=== PATIENT | female | born 1955 | race Caucasian/White ===

== ENCOUNTER 2024-07-11 13:03 | Outpatient (AMB) | payer MEDICARE, SELFPAY ==
--- NOTE | 2024-07-11 13:09 | A.OFFVIS_ITS ---
Intake Visit Reasons: history of kidney stones and IC Intake Note: Patient is present for history of kidney stones and IC Urology Medication:NONE Antibiotic Allergy:NONE Blood Thinner:NONE Property Claims Adjuster Required: No Allergies amoxicillin Allergy (Mild, Verified 07/11/24 14:04) Unknown ampicillin Allergy (Mild, Verified 07/11/24 14:04) Unknown Penicillins Allergy (Mild, Verified 07/11/24 14:04) Unknown HPI Comments Details: 07/11/2024--Josefina is a 68-year-old female who has a history of kidney stones and interstitial cystitis seen by [facility] Dr. Andi Zavala in the past here for evaluation. She states she is currently asymptomatic. She has not had IC symptoms other than getting up frequently at nighttime. She of the IC diet. Josefina states she had her 1st episode of kidney stone attack about 35 years ago. She has past a couple stones in the past and had a procedure with Dr. Zavala at [facility] in 2018 for an obstructive stone. Since then she has been doing well. She is followed by nephrology group [facility] in [facility]. She states she had a 24 hour urine done about 3 or 4 months ago. She previously been treated with hydrochlorothiazide currently not using the medication. She states she had a CT scan done about 4 months ago at [facility]. I will request the report to be sent to my attention. Plan-will continue to monitor kidneys, discussed diet recommendations to decrease risk of kidney stone formation. FU in 6 months. PFSH Family History (Updated 07/11/24 @ 14:15 by YADIRA Red) Father Bladder cancer Mother Heart attack Social History (Updated 07/11/24 @ 14:35 by YADIRA Red) Alcohol intake: former Patient Tobacco Use Status: Former Tobacco user Use of substances other than those prescribed or required for medical reasons: No Review of Systems Const All systems reviewed & are unremarkable except as noted in HPI and below Reports no additional complaints Eyes Reports no additional complaints ENT Reports no additional complaints Card Reports no additional complaints Resp Reports no additional complaints GI Reports no additional complaints Reports as per HPI Musc Reports no additional complaints Skin/Breast Reports system reviewed and no additional complaints, except as documented Neuro Reports no additional complaints Psych Reports no additional complaints Endo Reports no additional complaints Hai/Lymph Reports no additional complaints Aller/Immun Reports no additional complaints Physical Exam Const General: cooperative, healthy appearing and no acute distress Orientation/consciousness: patient oriented x3 HEENT Head: Yes normal to inspection, Yes normocephalic and Yes atraumatic Eyes Conjunctivae: conjunctivae normal Neck Neck: Yes normal visual inspection and Yes trachea midline Chest Chest palpation & inspection: normal inspection of the chest Resp Effort & Inspection: normal respiratory effort Cardio Rate: regular rate GI Inspection: Yes normal to inspection Neuro General: patient oriented x3 Psych Appearance: grossly normal Results AMB Urinalysis, Automated UA Leukoctes 0 Antoni/uL Last Edit by Meghana Lin CCM on 07/11/24 13:22 UA Nitrite Negative Last Edit by Meghana Lin [facility] on 07/11/24 13:22 UA Urobilinogen 0.2 mg/dL Last Edit by Meghana Lin [facility] on 07/11/24 13:2 2 UA Protein 0 mg/dL Last Edit by Meghana Lin [facility] on 07/11/24 13:22 UA pH 6.5 Last Edit by Meghana Lin [facility] on 07/11/24 13:22 UA Blood 0 Allen/uL Last Edit by Meghana Lin CCM on 07/11/24 13:22 UA Specific [place] 1.005 Last Edit by Meghana Lin CCM on 07/11/24 13: 22 UA Ketone Negative Last Edit by Meghana Lin CCM on 07/11/24 13:22 UA Bilirubin 0 mg/dL Last Edit by Meghana Lin [facility] on 07/11/24 13:22 UA Glucose 0 mg/dL Last Edit by Meghana Lin [facility] on 07/11/24 13:22 Results Reviewed Results Reviewed: Laboratory Last Values Urine pH (Auto) 6.5 07/11/24 13:22 Specific [place] (Auto) 1.005 07/11/24 13:22 Urine Protein (Auto) 0 mg/dL 07/11/24 13:22 Glucose (UA)(Auto) 0 mg/dL 07/11/24 13:22 Urine Ketones (Auto) Negative 07/11/24 13:22 Urine Blood (Auto) 0 Allen/uL 07/11/24 13:22 Urine Nitrite (Auto) Negative 07/11/24 13:22 Urine Bilirubin (Auto) 0 mg/dL 07/11/24 13:22 Urine Urobilinogen (Auto) 0.2 mg/dL 07/11/24 13:22 Leukocyte Esterase (Auto) 0 Antoni/uL 07/11/24 13:22 Assessment & Plan Assessment & Plan (1) Kidney stones, calcium oxalate: Code(s): N20.0 - Calculus of kidney Category: Medical (2) History of recurrent UTIs: Code(s): Z87.440 - Personal history of urinary (tract) infections Category: Medical (3) Chronic cystitis: Code(s): N30.20 - Other chronic cystitis without hematuria Category: Medical Plan She states she had a 24 hour urine done about 3 or 4 months ago. She previously been treated with hydrochlorothiazide currently not using the medication. She states she had a CT scan done about 4 months ago at [facility]. I will request the report to be sent to my attention. Plan-will continue to monitor kidneys, discussed diet recommendations to decrease risk of kidney stone formation. FU in 6 months. Orders: Orders AMB Urinalysis Automated 07/11/24 Z13.9 - Encounter for screening, unspecified US renal BI 6 Months N20.0 - Calculus of kidney Patient Instructions: The patient had an opportunity to ask questions regarding treatment plan. The patient expressed understanding and agreement with the above treatment plan. The patient is aware they should contact our office by phone for worsening of their current condition or the appearance of new symptoms. Compliance is encouraged with any medications and followup testing that is ordered. It is a privilege to be allowed the opportunity to participate in the urologic care of your patient. If you have any questions or concerns regarding treatment for the above conditions please do not hesitate to contact me. The office telephone contact is [phone]. This note is constructed in part using voice recognition software. While every effort has been made to ensure accuracy structural engineering project manager errors may have been included. Yours sincerely, Deanna Rosenberg MD Coding Level of Care Code New Pt Level 4 (76778) Diagnoses Kidney stones, calcium oxalate N20.0 History of recurrent UTIs Z87.440 Chronic cystitis N30.20
== END 2024-07-11 13:55 | disposition home or self-care (01) ==
PROVIDERS: PCP Internal Medicine; Visit Provider Urology
DX: N20.0 Calculus of kidney (principal); Z87.440 Personal history of urinary (tract) infections; N30.20 Other chronic cystitis without hematuria
CPT/HCPCS: 99204

== ENCOUNTER → 2024-07-11 13:03 | Outpatient (BNVA) | payer MEDICARE, SELFPAY | PROVIDERS: PCP Internal Medicine; Visit Provider Urology | DX: N20.0 Calculus of kidney (principal); N30.20 Other chronic cystitis without hematuria; Z87.440 Personal history of urinary (tract) infections | CPT/HCPCS: 81003; 99202 ==

== ENCOUNTER 2025-01-13 15:24 | Outpatient (REF) | payer MEDICARE, SELFPAY ==
--- NOTE | ~2025-01-13 | US_ITS ---
CLINICAL HISTORY: N20.0 - Calculus of kidney US renal with Color Doppler Comparison: None Findings: Right kidney normal size and echotexture, 10.3 cm length. No hydronephrosis calculus or mass. Normal color flow. Left kidney normal size and echotexture, 9.8 cm length. No hydronephrosis. Normal color flow. Nonobstructing caliceal stone upper pole measuring 4 x 3 x 2 mm. Echogenic renal cortical lesion midpole probable angiomyolipoma measuring 7 x 7 x 7 mm. Impression: 1. Kidneys normal size and position with normal cortical width. Nephrolithiasis on the left without evidence of obstructive uropathy. 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
--- OUTSIDE RECORDS SUMMARY | 2025-01-13 17:40 | XMS_ITS | Clinical Summary ---
Author Organization [facility], Address [address] [place] [address] [place] [address] Phone Care Team Providers Care Customer Success Specialist Name Role Phone Alyssa James MD Primary Care Provider [phone] Allergies Active Allergy Reactions Criticality Noted Date Comments Amoxicillin 02/27/2024 Ampicillin Other (see comments),Rash Low 02/27/2024 Other 02/27/2024 OPIOIDS - MORPHINE ANALOGUES Penicillins Other (see comments),Rash Low 11/02/2017 All cillins Per pt Medications hydroCHLOROthia zide 25 MG tablet TAKE 1 TABLET BY MOUTH IN THE MORNING 90 tablet 09/18/2023 Active Active Problems Problem Noted Date Diagnosed Date Hypercalciuria 02/27/2024 Hypertension 02/27/2024 Renal stone 05/08/2020 Resolved Problems Problem Noted Date Diagnosed Date Resolved Date Insomnia 11/06/2020 05/18/2021 Human papillomavirus deoxyri bonucleic acid detected, high risk on cervical specimen 04/04/2019 05/08/2020 Overview (05/08/2020): 2019, was neg at previous pap 2012; pap with HPV advised in 2019 Last Assessment & Plan: Reviewed the protocol for colpo if HPV pos x 2, and for annual paps Cyst of right ovary 03/04/2019 05/08/20 20 Overview (05/08/2020): If still 2.5 cm and simple as in 2013 ,. Will not need any further imaging Dupuytren's contracture 02/22/201804/20 Osteopenia 02/22/2018 05/08/2020 Immunizations Name Administration Dates Next Due Influenza Split High Dose Pr eservative Free IM 09/30/2019 Influenza, MDCK, PF, Quadrivalent 08/21/2018 Influenza, Quadrivalent, Preservative Free 10/25,12/06/2016 Influenza, Quadrivalent, With Preservative 09/18,09/23/2014 Pfizer SARS-COV-2 09/01/2021,01/25/2021,01/04/20 21 Pneumococcal Conjugate 13-Valent 08/19/2020 Td 02/18/2022 Family History Medical History Relation Comments Cancer Father of the bladder Heart attack Mother Relation Status Comments Father Unknown Mother Unknown Social History Tobacco Use Types Packs/Day Years Used Date Smoking Tobacco: Former Cigarettes Smokeless Tobacco: Never Alcohol Use Standard Drinks/Week Comments No 0 (1 standard drink = 0.6 oz pur e alcohol) Comments Unknown Sex and Gender Information Value Date Recorded Sex Assigned at Not on file Legal Sex Female 4:30 PM EST Gender Identity Not on file Sexual Orientation Not on file Last Filed Vital Signs Vital Sign Reading Time Taken Comments Blood Pressure 100/60 03/18/2019 12:00 PM EDT Pulse - - Temperature - - Respiratory Rate - - Oxygen Saturation - - Inhaled Oxygen Concentration - - Weight 62.6 kg (138 lb) 03/18/2019 12:00 PM EDT Height 154.9 cm (5' 1 ) 03/18/2019 12:00 PM EDT Body Mass Index 26.07 03/18/2019 12:00 PM EDT Plan of Treatment Upcoming Encounters Date Type Department Care Team (Late st Contact Info) Description 03/03/2025 2:00 PM EDT Office Visit [facility], [address] [place] [address] Albin Gomez MD [address] [place] [address] Health Maintenance Due Date Last Done Comments Breast Cancer Screening 1954 Colorectal Cancer Screening: Annual FOBT 2003 Colorectal Cancer Screening: Colonoscopy 2003 Colorectal Cancer Screening: Sigmoidoscopy 2003 Pneumococcal Vaccine: 65+ Years (2 of 2 - PPSV23 or PCV20) 10/14/2020 08/19/2020 Influenza Vaccine (#1) 2024 9, 08/21/2018, 10/25/2017, Additional history exists Hepatitis B Vaccine Aged Out No longe r eligible based on patient's age to complete this topic Insurance [facility] MEDIC[facility] Care Teams Customer Success Specialist Relationship Specialty Start Date End Date Alyssa James MD [address] [place] [address], [address] [place] [address] PCP - General 09/24/19
--- OUTSIDE RECORDS SUMMARY | 2025-01-13 17:40 | XMS_ITS | Encounter Summary ---
Author Organization [facility] Address [address] [place] [address] Phone Care Team Providers Care Breaker Hand Name Role Phone Alyssa James MD Primary Care Provider [phone] Encounter Details Date Type Department Care Team (Late Contact Info) Description 02/27/2024 Documentation Only [facility] [address] [place] [address] Raquel Summers [address] [place] [address] Social History Tobacco Use Types Packs/Day Years Used Date Smoking Tobacco: Former Cigarettes Smokeless Tobacco: Never Alcohol Use Standard Drinks/Week Comments No 0 (1 standard drink = 0.6 oz pur e alcohol) Comments Unknown Sex and Gender Information Value Date Recorded Sex Assigned at Not on file Legal Sex Female 4:30 PM EST Gender Identity Not on file Sexual Orientation Not on file documented as of this encounter Plan of Treatment Upcoming Encounters Date Type Department Care Team (Late st Contact Info) Description 03/03/2025 2:00 PM EDT Office Visit [facility] [address] [place] [address] Albin Gomez MD [address] [place] [address] [place] [address] documented as of this encounter Visit Diagnoses Not on filedocumented in this encounter Care Teams Breaker Hand Relationship Specialty Start Date End Date Alyssa James MD [address] [place] [address], [address] [place] [address] PCP - General 09/24/19 documented as of this encounter
--- OUTSIDE RECORDS SUMMARY | 2025-01-13 17:40 | XMS_ITS | Clinical Summary ---
Author Organization [facility] ity Address [address] [place] [address] Care Team Providers Care Director Of Food And Beverage Services Name Role Phone Unavailable Primary Care Provider Unavailabl e Social History Tobacco Use Types Packs/Day Years Used Date Smoking Tobacco: Never Assessed Comments Unknown Sex and Gender Information Value Date Recorded Sex Assigned at Not on file Legal Sex Female 10:39 AM EST Gender Identity Not on file Sexual Orientation Not on file Plan of Treatment Health Maintenance Due Date Last Done Comments Breast Cancer Screening 1955 DTaP,Tdap,and Td Vaccines (1 - Tdap) 1973 Pneumococcal Vaccine: 50+ Ye ars (1 of 1 - PCV) 2004 Zoster Vaccines (1 of 2) 2004 COVID-19 Vaccine ( - 2023-2 5 season) 2024 Influenza Vaccine (#1) 2024 RSV Immunization Patients 60 + Years Old (1 - 1-dose 75+ series) 2029 HIB Vaccines Aged Out No longer eligi ble based on patient's age to complete this topic HPV Vaccines Aged Out No longer eligi ble based on patient's age to complete this topic Hepatitis A Vaccines Aged Out No long er eligible based on patient's age to complete this topic Hepatitis B Vaccines Aged Out No long er eligible based on patient's age to complete this topic IPV Vaccines Aged Out No longer eligi ble based on patient's age to complete this topic MMR Vaccines Aged Out No longer eligi ble based on patient's age to complete this topic Meningococcal ACWY Vaccine Aged Out N o longer eligible based on patient's age to complete this topic Meningococcal B Vacine Aged Out No lo nger eligible based on patient's age to complete this topic RSV Immunization Patients Un scot 20 months Aged Out No longer eligible b ased on patient's age to complete this topic Varicella Vaccines Aged Out No longer eligible based on patient's age to complete this topic
--- OUTSIDE RECORDS SUMMARY | 2025-01-13 17:40 | XMS_ITS | Encounter Summary ---
Author Organization [facility] Address [address] [place] [address] Phone Care Team Providers Care Cook Helper Meat Name Role Phone Alyssa James MD Primary Care Provider [phone] Encounter Details Date Type Department Care Team (Late Contact Info) Description 02/27/2024 Documentation Only [facility] [address] [place] [address] Raquel Summers [address] [place] [address] Social History Tobacco Use Types [...] Visit [facility] [address] [place] [address] Albin Gomez MD [address] [place] [address] [place] [address] documented as of this encounter Visit Diagnoses Not on filedocumented in this encounter Care Teams Cook Helper Meat Relationship Specialty Start Date End Date Alyssa James MD [address] [place] [address], [address] [place] [address] PCP - General 09/24/19 documented as of this encounter
--- OUTSIDE RECORDS SUMMARY | 2025-01-13 17:40 | XMS_ITS | Encounter Summary ---
Author Organization [facility] Address [address] [place] [address] Phone Care Team Providers Care Accountant Bookkeeper Name Role Phone Alyssa James MD Primary Care Provider [phone] Encounter Details Date Type Department Care Team (Late Contact Info) Description 02/27/2024 Documentation Only [facility] [address] [place] [address] Raquel Summers [address] [place] [address] Social History Tobacco Use Types [...] Visit [facility] [address] [place] [address] Albin Gomez MD [address] [place] [address] [place] [address] documented as of this encounter Visit Diagnoses Not on filedocumented in this encounter Care Teams Accountant Bookkeeper Relationship Specialty Start Date End Date Alyssa James MD [address] [place] [address], [address] [place] [address] PCP - General 09/24/19 documented as of this encounter
--- OUTSIDE RECORDS SUMMARY | 2025-01-13 17:40 | XMS_ITS | Encounter Summary ---
Author Organization [facility] Address [address] [place] [address] Phone Care Team Providers Care Business Development Consultant Name Role Phone Alyssa James MD Primary Care Provider [phone] Encounter Details Date Type Department Care Team (Late Contact Info) Description 02/27/2024 Documentation Only [facility] [address] [place] [address] Raquel Summers [address] [place] [address] Social History Tobacco Use Types [...] Visit [facility] [address] [place] [address] Albin Gomez MD [address] [place] [address] [place] [address] documented as of this encounter Visit Diagnoses Not on filedocumented in this encounter Care Teams Business Development Consultant Relationship Specialty Start Date End Date Alyssa James MD [address] [place] [address], [address] [place] [address] PCP - General 09/24/19 documented as of this encounter
--- OUTSIDE RECORDS SUMMARY | 2025-01-13 17:40 | XMS_ITS | Encounter Summary ---
Author Organization [facility] Address [address] [place] [address] Phone Care Team Providers Care Operations Professional Name Role Phone Alyssa James MD Primary Care Provider [phone] Encounter Details Date Type Department Care Team (Late Contact Info) Description 02/27/2024 Documentation Only [facility] [address] [place] [address] Raquel Summers [address] [place] [address] Social History Tobacco Use Types [...] Visit [facility] [address] [place] [address] Albin Gomez MD [address] [place] [address] [place] [address] documented as of this encounter Visit Diagnoses Not on filedocumented in this encounter Care Teams Operations Professional Relationship Specialty Start Date End Date Alyssa James MD [address] [place] [address], [address] [place] [address] PCP - General 09/24/19 documented as of this encounter
--- OUTSIDE RECORDS SUMMARY | 2025-01-13 17:40 | XMS_ITS | Encounter Summary ---
Author Organization [facility] Address [address] [place] [address] Phone Care Team Providers Care Clerical Investigator Name Role Phone Alyssa James MD Primary Care Provider [phone] Encounter Details Date Type Department Care Team (Late st Contact Info) Description 07/25/2024 Documentation Only [facility] [address] [place] [address] Raquel Summers [address] [place] [address] Social History Tobacco Use Types [...] Visit [facility] [address] [place] [address] Albin Gomez MD [address] [place] [address] [place] [address] documented as of this encounter Visit Diagnoses Not on filedocumented in this encounter Care Teams Clerical Investigator Relationship Specialty Start Date End Date Alyssa James MD [address] [place] [address], [address] [place] [address] PCP - General 09/24/19 documented as of this encounter
--- OUTSIDE RECORDS SUMMARY | 2025-01-13 17:40 | XMS_ITS | Encounter Summary ---
Author Organization [facility] Address [address] [place] [address] Phone Care Team Providers Care Mercury Purifier Name Role Phone Alyssa James MD Primary Care Provider [phone] Encounter Details Date Type Department Care Team (Late st Contact Info) Description 10/02/2023 Documentation Only [facility] [address] [place] [address] Raquel Summers [address] [place] [address] Social History Tobacco Use Types Packs/Day Years Used Date Smoking Tobacco: Never Alcohol Use Standard Drinks/Week Comments [...] Visit [facility] [address] [place] [address] Albin Gomez MD [address] [place] [address] [place] [address] documented as of this encounter Visit Diagnoses Not on filedocumented in this encounter Care Teams Mercury Purifier Relationship Specialty Start Date End Date Alyssa James MD [address] [place] [address], [address] [place] [address] PCP - General 09/24/19 documented as of this encounter
--- OUTSIDE RECORDS SUMMARY | 2025-01-13 17:40 | XMS_ITS | Encounter Summary ---
Author Organization [facility] Address [address] [place] [address] Phone Care Team Providers Care Stave Planer Tender Name Role Phone Alyssa James MD Primary Care Provider [phone] Encounter Details Date Type Department Care Team (Late st Contact Info) Description 10/02/2023 Documentation Only [facility] [address] [place] [address] Raquel Summers [address] [place] [address] Social History Tobacco Use Types [...] Visit [facility] [address] [place] [address] Albin Gomez MD [address] [place] [address] [place] [address] documented as of this encounter Visit Diagnoses Not on filedocumented in this encounter Care Teams Stave Planer Tender Relationship Specialty Start Date End Date Alyssa Jaems MD [address] [place] [address], [address] [place] [address] PCP - General 09/24/19 documented as of this encounter
== END 2025-01-13 15:25 | disposition home or self-care (01) ==
LOC: HO.HMGCX 15:24
PROVIDERS: PCP Internal Medicine; Visit Provider Urology
DX: N20.0 Calculus of kidney (principal)
CPT/HCPCS: 76775

== ENCOUNTER → 2025-01-13 15:26 | Outpatient (BNV) | payer MEDICARE, SELFPAY | PROVIDERS: PCP Internal Medicine; Visit Provider Radiology Diagnostic Radiology | DX: N20.0 Calculus of kidney (principal) | CPT/HCPCS: 76775 ==

== ENCOUNTER 2025-02-20 13:33 | Outpatient (AMB) | payer MEDICARE, SELFPAY ==
--- NOTE | 2025-02-19 13:18 | A.OFFVIS_ITS ---
Intake Visit Reasons: 7m/US Intake Note: Patient presents as a telehealth visit for a 7 month follow up/US. Urology Medication:NONE Antibiotic Allergy:NONE Blood Thinner:NONE Lead Pharmacy Technician Required: No Allergies amoxicillin Allergy (Mild, Verified 02/19/25 13:18) Unknown ampicillin Allergy (Mild, Verified 02/19/25 13:18) Unknown Penicillins Allergy (Mild, Verified 02/19/25 13:18) Unknown HPI Comments Details: 02/19/25--Telehealth History of Present Illness The patient is a 69-year-old female presenting with follow-up concerns regarding previously identified renal issues. An ultrasound conducted on January 13, 2025, revealed a 4 mm renal stone in the left kidney and a 7 mm echogenic cortical lesion suggestive of angiomyolipoma. These findings currently appear asymptomatic, with no reported changes in the patient's urinary habits or the presence of associated pain. The history reveals no acute complications since the initial discovery, indicating stability of the conditions at this time. Discussion Notes I discussed with the patient the ultrasound findings indicating the presence of a left renal stone measuring 4 mm and a cortical lesion suspected to be an angiomyolipoma measuring 7 mm. I explained that while the stone is small and currently does not necessitate urgent intervention, periodic monitoring is advised. Regarding the lesion, I discussed the potential need for further imaging?specifically a CT scan with renal mass protocol, including IV contrast, to better characterize it. The follow-up imaging can occur in six months unless symptoms arise. I clarified that, currently, there are no concerning findings, but the additional imaging helps ensure comprehensive evaluation. I advised that the CT scan requires bloodwork to assess renal function due to the use of contrast. Urinary Symptoms Review - No acute urinary symptoms reported - No changes in frequency or urgency of urination mentioned - No instances of pain or discomfort documented - No reports of urinary incontinence Results - Ultrasound (01/13/25): 4 mm left renal calculus, 7 mm echogenic cortical lesion suggestive of angiomyolipoma (01/13/25--Nonobstructing caliceal stone upper pole measuring 4 x 3 x 2 mm. Echogenic renal cortical lesion midpole probable angiomyolipoma measuring 7 x 7 x 7 mm.) 07/11/2024--Josefina is a 68-year-old female who has a history of kidney stones and interstitial cystitis seen by [facility] Dr. Charbel Zavala in the past here for evaluation. She states she is currently asymptomatic. She has not had IC symptoms other than getting up frequently at nighttime. She of the IC diet. Josefina states she had her 1st episode of kidney stone attack about 35 years ago. She has past a couple stones in the past and had a procedure with Dr. Zavala at [facility] in 2018 for an obstructive stone. Since then she has been doing well. She is followed by nephrology group [facility] in [facility]. She states she had a 24 hour urine done about 3 or 4 months ago. She previously been treated with hydrochlorothiazide currently not using the medication. She states she had a CT scan done about 4 months ago at [facility]. I will request the report to be sent to my attention. Plan-will continue to monitor kidneys, discussed diet recommendations to decrease risk of kidney stone formation. FU in 6 months. PFSH Family History Father Bladder cancer Mother Heart attack Social History Alcohol intake: former Patient Tobacco Use Status: Former Tobacco user Review of Systems Const All systems reviewed & are unremarkable except as noted in HPI and below Reports no additional complaints Eyes Reports no additional complaints ENT Reports no additional complaints Card Reports no additional complaints Resp Reports no additional complaints GI Reports no additional complaints Reports as per HPI Musc Reports no additional complaints Skin/Breast Reports system reviewed and no additional complaints, except as documented Neuro Reports no additional complaints Psych Reports no additional complaints Endo Reports no additional complaints Hai/Lymph Reports no additional complaints Aller/Immun Reports no additional complaints Telehealth Telehealth Telehealth Platform: [facility] Location of provider rendering services: practice address Location of patient: address on file Patient Identification confirmed using: Name, : Yes Telehealth method: video Patient verbally consented to treatment: Yes Patient verbally consented to billing insurance company: Yes Patient informed of any privacy concerns related to visit: Yes Results Reviewed Results Reviewed: Date of Service: 01/13/25 CLINICAL HISTORY: N20.0 - Calculus of kidney US renal with Color Doppler Comparison: None Findings: Right kidney normal size and echotexture, 10.3 cm length. No hydronephrosis calculus or mass. Normal color flow. Left kidney normal size and echotexture, 9.8 cm length. No hydronephrosis. Normal color flow. Nonobstructing caliceal stone upper pole measuring 4 x 3 x 2 mm. Echogenic renal cortical lesion midpole probable angiomyolipoma measuring 7 x 7 x 7 mm. Impression: 1. Kidneys normal size and position with normal cortical width. Nephrolithiasis on the left without evidence of obstructive uropathy. 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 - Complete blood work to assess kidney function before the scheduled CT scan. - Await contact from radiology for scheduling the CT scan in six months. - Follow up with this office after imaging results for discussion and further guidance. Orders: Orders CT abdomen wo/w IV con 6 Months N28.89 - Other specified disorders of kidney and ureter Blood Urea Nitrogen 4 Months N28.89 - Other specified disorders of kidney and ureter Creatinine 4 Months N28.89 - Other specified disorders of kidney and ureter Patient Instructions: The patient had an opportunity to ask questions regarding treatment plan. The patient expressed understanding and agreement with the above treatment plan. The patient is aware they should contact our office by phone for worsening of their current condition or the appearance of new symptoms. Compliance is encouraged with any medications and followup testing that is ordered. It is a privilege to be allowed the opportunity to participate in the urologic care of your patient. If you have any questions or concerns regarding treatment for the above conditions please do not hesitate to contact me. The office telephone contact is [phone]. This note is constructed in part using voice recognition software. While every effort has been made to ensure accuracy semiconductor packages leak tester errors may have been included. Yours sincerely, Deanna Rosenberg MD Scribe Plan - Not visible on output: Patient was informed and verbally consented to the use of an ambient scribe for clinic note documentation during this visit. Coding Level of Care Code Tele Est Pt Level 4 (77448) Diagnoses Kidney stones, calcium oxalate N20.0 Renal mass of unknown nature N28.89
--- OUTSIDE RECORDS SUMMARY | 2025-02-19 15:51 | XMS_ITS | Encounter Summary ---
Author Organization [facility] Address [address] [place] [address] Phone Care Team Providers Care Asbestos Shingle Roofer Name Role Phone Alyssa James MD Primary Care Provider [phone] Encounter Details Date Type Department Care Team (Late st Contact Info) Description 07/25/2024 Documentation Only [facility] [address] [place] [address] Raquel Summers [address] [place] [address] Social History Tobacco Use Types [...] Visit [facility] [address] [place] [address] Albin Gomez MD [address] [place] [address] [place] [address] documented as of this encounter Visit Diagnoses Not on filedocumented in this encounter Care Teams Asbestos Shingle Roofer Relationship Specialty Start Date End Date Alyssa James MD [address] [place] [address], 2nd [place] [address] PCP - General 09/24/19 documented as of this encounter
--- OUTSIDE RECORDS SUMMARY | 2025-02-19 15:51 | XMS_ITS | Encounter Summary ---
Author Organization [facility] Address [address] [place] [address] Phone Care Team Providers Care Report Clerk Name Role Phone Alyssa James MD Primary Care Provider [phone] Encounter Details Date Type Department Care Team (Late st Contact Info) Description 02/27/2024 Documentation Only [facility] [address] [place] [address] Raquel Summers [address] [place] [address] Social History Tobacco Use Types [...] Visit [facility] [address] [place] [address] Albin Gomez MD [address] [place] [address] [place] [address] documented as of this encounter Visit Diagnoses Not on filedocumented in this encounter Care Teams Report Clerk Relationship Specialty Start Date End Date Alyssa James MD [address] [place] [address], 2nd [place] [address] PCP - General 09/24/19 documented as of this encounter
--- OUTSIDE RECORDS SUMMARY | 2025-02-19 15:51 | XMS_ITS | Encounter Summary ---
Author Organization [facility] Address [address] [place] [address] Phone Care Team Providers Care Spear Fisher Name Role Phone Alyssa James MD Primary Care Provider [phone] Encounter Details Date Type Department Care Team (Late st Contact Info) Description 10/02/2023 Documentation Only [facility] [address] [place] [address] Raquel Summers [address] [place] [address] Social History Tobacco Use Types [...] [facility] [address] [place] [address] Albin Gomez MD [address] [place] [address] [place] [address] documented as of this encounter Visit Diagnoses Not on filedocumented in this encounter Care Teams Spear Fisher Relationship Specialty Start Date End Date Alyssa James MD [address] [place] [address], 2nd [place] [address] PCP - General 09/24/19 documented as of this encounter
--- OUTSIDE RECORDS SUMMARY | 2025-02-19 15:51 | XMS_ITS | Encounter Summary ---
Author Organization [facility] Address [address] [place] [address] Phone Care Team Providers Care Sleep Medicine Physician Name Role Phone Alyssa James MD Primary Care Provider [phone] Encounter Details Date Type Department Care Team (Late st Contact Info) Description 02/27/2024 Documentation Only [facility] [address] [place] [address] Raquel Summers [address] [place] [address] Social History Tobacco Use Types [...] [facility] [address] [place] [address] Albin Gomez MD [address] [place] [address] [place] [address] documented as of this encounter Visit Diagnoses Not on filedocumented in this encounter Care Teams Sleep Medicine Physician Relationship Specialty Start Date End Date Alyssa James MD [address] [place] [address], 2nd [place] [address] PCP - General 09/24/19 documented as of this encounter
--- OUTSIDE RECORDS SUMMARY | 2025-02-19 15:51 | XMS_ITS | Clinical Summary ---
Author Organization [facility] [place], Address [address] [place] [address] [place] [address] Phone Care Team Providers Care Horticulturalist Name Role Phone Alyssa James MD Primary Care Provider [phone] Allergies Active Allergy Reactions Criticality Noted Date [...] Visit [facility] [place], [address] [place] [address] Albin Gomez MD [address] [place] [address] Health Maintenance Due Date Last [...] patient's age to complete this topic Insurance [facility] MEDICARE Care Teams Horticulturalist Relationship Specialty Start Date End Date Alyssa James MD [address] [place] [address], 2nd [place] [address] PCP - General 09/24/19
--- OUTSIDE RECORDS SUMMARY | 2025-02-19 15:51 | XMS_ITS | Clinical Summary ---
Author Organization [facility] it[facility] Address [address] [place] [address] Care Team Providers Care Circular Saw Edge Fuser Name Role Phone Unavailable Primary Care Provider [...] 2024 Influenza Vaccine (#1) 2024 RSV Immunization Adult Patie nts (1 - 1-dose 75+ series) 2029 HIB [...]
--- OUTSIDE RECORDS SUMMARY | 2025-02-19 15:51 | XMS_ITS | Encounter Summary ---
Author Organization [facility] Address [address] [place] [address] Phone Care Team Providers Care Drill Runner Helper Name Role Phone Alyssa James MD Primary Care Provider [phone] Encounter Details Date Type Department Care Team (Late st Contact Info) Description 10/02/2023 Documentation Only [facility] [address] [place] [address] Raquel Summers [address] [place] [address] Social History Tobacco Use Types [...] Visit [facility] [address] [place] [address] Albin Gomez MD [address] [place] [address] [place] [address] documented as of this encounter Visit Diagnoses Not on filedocumented in this encounter Care Teams Drill Runner Helper Relationship Specialty Start Date End Date Alyssa James MD [address] [place] [address], 2nd [place] [address] PCP - General 09/24/19 documented as of this encounter
--- OUTSIDE RECORDS SUMMARY | 2025-02-19 15:51 | XMS_ITS | Encounter Summary ---
Author Organization [facility] Address [address] [place] [address] Phone Care Team Providers Care Construction Supervisor/Carpenter Name Role Phone Alyssa James MD Primary Care Provider [phone] Encounter Details Date Type Department Care Team (Late st Contact Info) Description 02/27/2024 Documentation Only [facility] [address] [place] [address] Raquel Summers [address] [place] [address] Social History Tobacco Use Types [...] Visit [facility] [address] [place] [address] Albin Gomez MD [address] [place] [address] [place] [address] documented as of this encounter Visit Diagnoses Not on filedocumented in this encounter Care Teams Construction Supervisor/Carpenter Relationship Specialty Start Date End Date Alyssa James MD [address] [place] [address], 2nd [place] [address] PCP - General 09/24/19 documented as of this encounter
--- OUTSIDE RECORDS SUMMARY | 2025-02-19 15:51 | XMS_ITS | Encounter Summary ---
Author Organization [facility] Address [address] [place] [address] Phone Care Team Providers Care Banking Management Consulting Manager Name Role Phone Alyssa James MD Primary Care Provider [phone] Encounter Details Date Type Department Care Team (Late st Contact Info) Description 02/27/2024 Documentation Only [facility] [address] [place] [address] Raquel Summers [address] [place] [address] Social History Tobacco Use Types [...] Visit [facility] [address] [place] [address] Albin Gomez MD [address] [place] [address] [place] [address] documented as of this encounter Visit Diagnoses Not on filedocumented in this encounter Care Teams Banking Management Consulting Manager Relationship Specialty Start Date End Date Alyssa James MD [address] [place] [address], 2nd [place] [address] PCP - General 09/24/19 documented as of this encounter
--- OUTSIDE RECORDS SUMMARY | 2025-02-19 15:51 | XMS_ITS | Encounter Summary ---
Author Organization [facility] Address [address] [place] [address] Phone Care Team Providers Care Bike Designer Name Role Phone Alyssa James MD Primary Care Provider [phone] Encounter Details Date Type Department Care Team (Late st Contact Info) Description 02/27/2024 Documentation Only [facility] [address] [place] [address] Raquel Summers [address] [place] [address] Social History Tobacco Use Types [...] Visit [facility] [address] [place] [address] Albin Gomez MD [address] [place] [address] [place] [address] documented as of this encounter Visit Diagnoses Not on filedocumented in this encounter Care Teams Bike Designer Relationship Specialty Start Date End Date Alyssa James MD [address] [place] [address], 2nd [place] [address] PCP - General 09/24/19 documented as of this encounter
--- OUTSIDE RECORDS SUMMARY | 2025-02-20 14:50 | XMS_ITS | Encounter Summary ---
Author Organization [facility] Address [address] [place] [address] Phone Care Team Providers Care Security Manager Name Role Phone Alyssa James MD Primary Care Provider [phone] Encounter Details Date Type Department Care Team (Late st Contact Info) Description 07/25/2024 Documentation Only [facility] [address] [place] [address] Raquel Summers [address] [place] [address] Social History Tobacco Use Types [...] Visit [facility] [address] [place] [address] Albin Gomez MD [address] [place] [address] [place] [address] documented as of this encounter Visit Diagnoses Not on filedocumented in this encounter Care Teams Security Manager Relationship Specialty Start Date End Date Alyssa James MD [address] [place] [address], 2nd [place] [address] PCP - General 09/24/19 documented as of this encounter
--- OUTSIDE RECORDS SUMMARY | 2025-02-20 14:50 | XMS_ITS | Clinical Summary ---
Author Organization [facility] [place], Address [address] [place] [address] [place] [address] Phone Care Team Providers Care Retail Director Name Role Phone Alyssa James MD Primary Care Provider [phone] Allergies Active Allergy Reactions Criticality Noted Date [...] Visit [facility] [place], [address] [facility] [facility] [place] [address] Albin Gomez MD [address] [facility] [place] [address] Health Maintenance Due Date Last [...] patient's age to complete this topic Insurance [facility] MEDICARE Care Teams Retail Director Relationship Specialty Start Date End Date Alyssa James MD [address] [place] [address], 2nd [place] [address] PCP - General 09/24/19
--- OUTSIDE RECORDS SUMMARY | 2025-02-20 14:50 | XMS_ITS | Encounter Summary ---
Author Organization [facility] Address [address] [place] [address] Phone Care Team Providers Care Supervisor [address] Name Role Phone Alyssa James MD Primary Care Provider [phone] Encounter Details Date Type Department Care Team (Late st Contact Info) Description 10/02/2023 Documentation Only [facility] [address] [place] [address] Raquel Summers [address] [place] [address] Social History Tobacco Use Types [...] [facility] [address] [place] [address] Albin Gomez MD [address] [place] [address] [place] [address] documented as of this encounter Visit Diagnoses Not on filedocumented in this encounter Care Teams Supervisor [address] Relationship Specialty Start Date End Date Alyssa James MD [address] [place] [address], 2nd [place] [address] PCP - General 09/24/19 documented as of this encounter
--- OUTSIDE RECORDS SUMMARY | 2025-02-20 14:50 | XMS_ITS | Encounter Summary ---
Author Organization [facility] Address [address] [place] [address] Phone Care Team Providers Care Rehab Assistant Name Role Phone Alyssa James MD Primary Care Provider [phone] Encounter Details Date Type Department Care Team (Late st Contact Info) Description 02/27/2024 Documentation Only [facility] [address] [place] [address] Raquel Summers [address] [place] [address] Social History Tobacco Use Types [...] Visit [facility] [address] [place] [address] Albin Gomez MD [address] [place] [address] [place] [address] documented as of this encounter Visit Diagnoses Not on filedocumented in this encounter Care Teams Rehab Assistant Relationship Specialty Start Date End Date Alyssa James MD [address] [place] [address], 2nd [place] [address] PCP - General 09/24/19 documented as of this encounter
--- OUTSIDE RECORDS SUMMARY | 2025-02-20 14:50 | XMS_ITS | Encounter Summary ---
Author Organization [facility] Address [address] [place] [address] Phone Care Team Providers Care Youth Corrections Officer Name Role Phone Alyssa James MD Primary Care Provider [phone] Encounter Details Date Type Department Care Team (Late st Contact Info) Description 10/02/2023 Documentation Only [facility] [address] [place] [address] Raquel Summers [address] [place] [address] Social History Tobacco Use Types [...] Visit [facility] [address] [place] [address] Albin Gomez MD [address] [place] [address] [place] [address] documented as of this encounter Visit Diagnoses Not on filedocumented in this encounter Care Teams Youth Corrections Officer Relationship Specialty Start Date End Date Alyssa James MD [address] [place] [address], 2nd [place] [address] PCP - General 09/24/19 documented as of this encounter
--- OUTSIDE RECORDS SUMMARY | 2025-02-20 14:50 | XMS_ITS | Encounter Summary ---
Author Organization [facility] Address [address] [place] [address] Phone Care Team Providers Care Director Of Oncology Name Role Phone Alyssa James MD Primary Care Provider [phone] Encounter Details Date Type Department Care Team (Late st Contact Info) Description 02/27/2024 Documentation Only [facility] [address] [place] [address] Raquel Summers [address] [place] [address] Social History Tobacco Use Types [...] Visit [facility] [address] [place] [address] Albin Gomez MD [address] [place] [address] [place] [address] documented as of this encounter Visit Diagnoses Not on filedocumented in this encounter Care Teams Director Of Oncology Relationship Specialty Start Date End Date Alyssa James MD [address] [place] [address], [address] [place] [address] PCP - General 09/24/19 documented as of this encounter
--- OUTSIDE RECORDS SUMMARY | 2025-02-20 14:50 | XMS_ITS | Encounter Summary ---
Author Organization [facility] Address [address] [place] [address] Phone Care Team Providers Care Plumber Cub Name Role Phone Alyssa James MD Primary Care Provider [phone] Encounter Details Date Type Department Care Team (Late st Contact Info) Description 02/27/2024 Documentation Only [facility] [address] [place] [address] Raquel Summers [address] [place] [address] Social History Tobacco Use Types [...] Visit [facility] [address] [place] [address] Albin Gomez MD [address] [place] [address] [place] [address] documented as of this encounter Visit Diagnoses Not on filedocumented in this encounter Care Teams Plumber Cub Relationship Specialty Start Date End Date Alyssa James MD [address] [place] [address], [address] [place] [address] PCP - General 09/24/19 documented as of this encounter
--- OUTSIDE RECORDS SUMMARY | 2025-02-20 14:50 | XMS_ITS | Clinical Summary ---
Author Organization [facility] ity Address [address] [place] [address] Care Team Providers Care Cyber Forensics Analyst Name Role Phone Unavailable Primary Care Provider [...]
--- OUTSIDE RECORDS SUMMARY | 2025-02-20 14:50 | XMS_ITS | Encounter Summary ---
Author Organization [facility] Address [address] [place] [address] Phone Care Team Providers Care Barrel Racer Name Role Phone Alyssa James MD Primary Care Provider [phone] Encounter Details Date Type Department Care Team (Late st Contact Info) Description 02/27/2024 Documentation Only [facility] [address] [place] [address] Raquel Summers [address] [place] [address] Social History Tobacco Use Types [...] Visit [facility] [address] [place] [address] Albin Gomez MD [address] [place] [address] [place] [address] documented as of this encounter Visit Diagnoses Not on filedocumented in this encounter Care Teams Barrel Racer Relationship Specialty Start Date End Date Alyssa James MD [address] [place] [address], 2[address] [place] [address] PCP - General 09/24/19 documented as of this encounter
--- OUTSIDE RECORDS SUMMARY | 2025-02-20 14:50 | XMS_ITS | Encounter Summary ---
Author Organization [facility] Address [address] [place] [address] Phone Care Team Providers Care Studio Musician Name Role Phone Alyssa James MD Primary Care Provider [phone] Encounter Details Date Type Department Care Team (Late st Contact Info) Description 02/27/2024 Documentation Only [facility] [address] [place] [address] Raquel Summers [address] [place] [address] Social History Tobacco Use Types [...] Visit [facility] [address] [place] [address] Albin Gomez MD [address] [place] [address] [place] [address] documented as of this encounter Visit Diagnoses Not on filedocumented in this encounter Care Teams Studio Musician Relationship Specialty Start Date End Date Alyssa James MD [address] [place] [address], 2nd [place] [address] PCP - General 09/24/19 documented as of this encounter
== END 2025-02-20 14:02 | disposition home or self-care (01) ==
PROVIDERS: PCP Internal Medicine; Visit Provider Urology
DX: N20.0 Calculus of kidney (principal); N28.89 Other specified disorders of kidney and ureter
CPT/HCPCS: 99214

== ENCOUNTER → 2025-02-20 13:33 | Outpatient (BNVA) | payer MEDICARE, SELFPAY | PROVIDERS: PCP Internal Medicine; Visit Provider Urology ==

== ENCOUNTER 2025-06-11 13:22 | Outpatient (REF) | payer MEDICARE, SELFPAY ==
--- OUTSIDE RECORDS SUMMARY | 2025-06-11 13:55 | XMS_ITS | Encounter Summary ---
Author Organization [facility] Address [address] [address] Phone Care Team Providers Care Back Hoe Machine Operator Name Role Phone Alyssa James MD Primary Care Provider Shayy Claudio Unavailable [phone] Vargas Morrow MD Unavailable Alyssa James MD Unavailable Syed Mooney MD Unavailable Fiona Jerome MD Unavailable Marta Dueñas NP Unavailable Loida Castorena MD Unavailable [phone] Paola Del Rio MD Unavailable Marco Campuzano MD Unavailable Narda Farrar MD Unavailable Alyssa James MD Unavailable [phone] Ra Burleson MD, PhD Unavailable [email or web address] Alyssa James MD Unavailable Encounter Details Date Type Department Care Team (Latest Contact Info) Description 05/15/2019 Transcribe Orders [facility] Department [address] [place] [address] Aguila Terrelle, VALERIA [address] [place] [address], [address] [place] [address] [email or web address] Personal history of urinary calculi (Primary Dx); Cyst of kidney, acquired Social History Tobacco Use Types Packs/Day Years Used Date Smoking Tobacco: Former Smokeless Tobacco: Never Comments:quit in her late 20 s Alcohol Use Standard Drinks/Week Comments Not Currently 0 (1 standard drink = 0.6 oz pur e alcohol) rare Comments No Sex and Gender Information Value Date Recorded Sex Assigned at Female 11/27/2017 9:38 AM EST Legal Sex Female 9:56 PM EDT Gender Identity Female 11/27/2017 9:38 AM EST Sexual Orientation Choose not to disclose 2021 1:22 PM EDT Occupation Industry Job Start Date Job End Date 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 No visible calculi. Small bilateral renal cysts with benign characteristics. 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 No other significant changes. POS [id number] Narrative 07/23/2019 9:00 AM EDT HISTORY: Dysuria, UTI, renal cysts, urinary tract calculi. COMPARISON: . Kidneys 01/10/2019, CT abdomen 11/06/2018 FINDINGS: Right kidney: Kidney remains normal in size again measuring 11.3 cm in the long axis. An 8 mm anechoic cortical mass consistent with a cyst is again demonstrated within the interpolar region and is stable. No evidence of solid masses. No visible calculi. No pelvocaliectasis or evidence of significant cortical thinning. Left kidney: The kidney remains normal in size measuring 10.5 cm in the long axis similar to the previous exam. An 8 mm cyst containing a thin septation and a trace of peripheral echogenic material, likely calcium, in the lower pole is stable. An 8 mm round hyperechoic mass in the upper pole consistent with an angiomyolipoma demonstrated on previous CT and ultrasound is stable. No evidence of new masses. No visible calculi. No pelvocaliectasis or evidence of significant cortical thinning. Procedure Note Adarsh Shaver MD - 07/23/2019 HISTORY: Dysuria, UTI, renal cysts, urinary tract calculi. COMPARISON: . Kidneys 01/10/2019, CT abdomen 11/06/2018 FINDINGS: Right kidney: Kidney remains normal in size again measuring 11.3 cm inthe long axis. An 8 mm anechoic cortical mass consistent with a cyst isagain demonstrated within the interpolar region and is stable. Noevidence of solid masses. No visible calculi. No pelvocaliectasis orevidence of significant cortical thinning. Left kidney: The kidney remains normal in size measuring 10.5 cm in thelong axis similar to the previous exam. An 8 mm cyst containing a thinseptation and a trace of peripheral echogenic material, likely calcium, inthe lower pole is stable. An 8 mm round hyperechoic mass in the upperpole consistent with an angiomyolipoma demonstrated on previous CT andultrasound is stable. No evidence of new masses. No visible calculi. Nopelvocaliectasis or evidence of significant cortical thinning. IMPRESSION: No evidence of obstructive uropathy. No visible calculi. Small bilateralrenal cysts with benign characteristics. 8 mm angiomyolipoma within theleft kidney. No other significant changes. POS [id number] Ele Terrell CNP [facility] Final Resu lt documented in this encounter Visit Diagnoses Diagnosis Personal history of urinary calculi- Primary Cyst of kidney, acquired Acquired cyst of kidney Personal history of urinary calculi Cyst of kidney, acquired Acquired cyst of kidney documented in this encounter Additional Health Concerns Infection Onset Date Last Indicated Resolved Time CoV-Presumed 06/08/2022 06/08/2022 06/29/2022 1:21 AM EDT CoV-Risk 09/10/2024 09/10/2024 09/21/2024 1:22 AM EDT Influenza A 09/10/2024 09/10/2024 09/17/2024 1:22 AM EDT COVID-19 12/03/2024 12/03/2024 12/24/2024 1:21 AM EST Assessment Noted Time PHQ-2 Depression Total Score: 0 02/24/20 18 4:14 PM EDT documented as of this encounter Care Teams Back Hoe Machine Operator Relationship Specialty Start Date End Date Alyssa James MD [address] [place] [address], [address] [place] [address] PCP - General 09/04/17 Shayy Claudio PA [facility] [place] [address] Historical LMR Provider 09/05/17 2 Vargas Morrow MD [address] [place] [address], [address] [address] Historical LMR Provider 09/05/17 11/27/21 Alyssa James MD [address] [place] [address], [address] [place] [address] Historical LMR Provider 09/05/17 Syed Mooney MD [address] [place] [address] Historical LMR Provider 09/05/17 Fiona Jerome MD [address] [place] [address], [address] [place] [address] Historical LMR Provider 09/05/17 11/27/21 Marta Dueñas NP [address] [place] [address] Historical LMR Provider 09/05/17 2 Loida Castorena MD [address] [address] Historical LMR Provider 09/05/17 2 Paola Del Rio MD [address] [place] [address] Historical LMR Provider 09/05/17 2 Marco Campuzano MD [address] [place] [address] Historical LMR Provider 09/05/17 11/27/21 Narda Farrar MD [address] [place] [address] [facility], [place] [address] Historical LMR Provider 09/05/17 Alyssa James MD [address] [place] [address] Insurance Assigned Provider 03/23/19 Ra Burleson MD, PhD [address] [place] [address] [email or web address] 08/19/20 Alyssa James MD [address] [place] [address] [email or web address] Insurance Assigned Provider 02/24/24 documented as of this encounter Additional Source Comments The information contained in this document represents components of the legal health record. It is not the complete legal health record.[facility]
--- OUTSIDE RECORDS SUMMARY | 2025-06-11 13:55 | XMS_ITS | Clinical Summary ---
Author Organization [facility] ity Address [address] [place] [address] Care Team Providers Care Academic Support Director Name Role Phone Unavailable Primary Care Provider [...] Vaccines (1 of 2) 2004 COVID-19 Vaccine (1 - 2023-2 5 season) 2024 Depression Screening 11/20/2024 Influenza Vaccine (#1) 2025 RSV Immunization Adult Patie nts (1 - [...] age to complete this topic Meningococcal B Vaccine Aged Out No l onger eligible based on patient's age to complete this topic RSV Immunization Patients Un scot 20 months Aged Out No longer eligible b ased on patient's age to complete this topic Varicella Vaccines Aged Out No longer eligible based on patient's age to complete this topic
--- OUTSIDE RECORDS SUMMARY | 2025-06-11 13:55 | XMS_ITS | Encounter Summary ---
Author Organization [facility] Address [address] [place] [address] Phone Care Team Providers Care Equipment Worker Name Role Phone Alyssa James MD Primary Care Provider [phone] Encounter Details Date Type Department Care Team (Late st Contact Info) Description 10/02/2023 Documentation Only [facility] [place], [address] [place] [address] Raquel Summers [address] [place] [address] Social History Tobacco Use Types [...] on file documented as of this encounter Visit Diagnoses Not on filedocumented in this encounter Care Teams Equipment Worker Relationship Specialty Start Date End Date Alyssa James MD [address] [place] [address], 2nd [place] [address] PCP - General 09/24/19 documented as of this encounter
[2025-06-11 14:35] LABS: Blood Urea Nitrogen 13 mg/dL (9-16); Estimated Glomerular Filt Rate > 60
== END 2025-06-11 13:23 | disposition home or self-care (01) ==
LOC: HO.LAB 13:22
PROVIDERS: Visit Provider Urology
DX: N28.89 Other specified disorders of kidney and ureter (principal)
CPT/HCPCS: 36415; 82565; 84520

== ENCOUNTER 2025-06-30 13:57 | Outpatient (REF) | payer MEDICARE, SELFPAY ==
--- NOTE | ~2025-06-30 | CT_ITS ---
CLINICAL HISTORY: N28.89 - Other specified disorders of kidney and ureter CT abdomen with and without contrast Comparison: None provided Findings: No consolidation or effusion. Small nonobstructing calculi are seen throughout the left kidney. There is a small benign fatty lesion in the midpole of the left kidney. There is a small right renal cyst and several small left renal cysts. . No solid lesions are identified. There is no hydronephrosis. A 6.6 mm fluid attenuation lesion is seen in the pancreatic head. The gallbladder and the rest of the solid organs are unremarkable. No bowel obstruction, pneumoperitoneum, or pneumatosis. No acute fracture. The visualized GI tract is unremarkable. IMPRESSION: 1. Left-sided nephrolithiasis without obstructive uropathy. 2. Small bilateral renal cysts. 3. Small benign fatty lesion left kidney. 4. 6.6 mm fluid attenuation lesion in the pancreatic head likely a benign cystic lesion. Consider correlating with MRI. This document has been electronically signed by: Lorenzo Christianson MD on 07/02/2025 10:25:58
--- OUTSIDE RECORDS SUMMARY | 2025-06-30 14:26 | XMS_ITS | Encounter Summary ---
Author Organization [facility] Address [address] [address] Phone Care Team Providers Care Special Equipment Technician Name Role Phone Alyssa James MD Primary Care Provider Shayy Claudio Unavailable [phone] Vargas Morrow MD Unavailable Alyssa James MD Unavailable Syed Mooney MD Unavailable Fiona Jerome MD Unavailable Marta Dueñas NP Unavailable Loida Castorena MD Unavailable [phone] Paola Del Rio MD Unavailable Marco Campuzano MD Unavailable Narda Farrar MD Unavailable Alyssa James MD Unavailable [phone] Ra Burleson MD, PhD Unavailable [email or web address] Alyssa James MD Unavailable Encounter Details Date Type Department Care Team (Latest Contact Info) Description 05/15/2019 Transcribe Orders [facility] Department [address] [place] [address] Aguila Terrelle, VALERIA [address] [place] [address], [address] [place] [address] [email or web address] Personal history of urinary calculi (Primary [...] Start Date Job End Date 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 No other significant changes. POS [id number] Narrative 07/23/2019 9:00 AM EDT HISTORY: Dysuria, [...] theleft kidney. No other significant changes. POS [id number] Ele Terrell CNP [facility] Final Resu lt documented in this [...] documented as of this encounter Care Teams Special Equipment Technician Relationship Specialty Start Date End Date Alyssa James MD [address] [place] [address], [address] [place] [address] PCP - General 09/04/17 Shayy Claudio PA [facility] [place] [address] Historical LMR Provider 09/05/17 2 Vargas Morrow MD [address] [place] [address], [address] [address] Historical LMR Provider 09/05/17 11/27/21 Alyssa James MD [address] [place] [address], [address] [place] [address] Historical LMR Provider 09/05/17 Syed Mooney MD [address] [place] [address] Historical LMR Provider 09/05/17 Fiona Jerome MD [address] [place] [address], [address] [place] [address] Historical LMR Provider 09/05/17 11/27/21 Marta Dueñas NP [address] [place] [address] Historical LMR Provider 09/05/17 2 Loida Castorena MD [address] [address] Historical LMR Provider 09/05/17 2 Paola Del Rio MD [address] [place] [address] Historical LMR Provider 09/05/17 2 Marco Campuzano MD [address] [place] [address] Historical LMR Provider 09/05/17 11/27/21 Narda Farrar MD [address] [place] [address] [facility], [place] [address] Historical LMR Provider 09/05/17 Alyssa James MD [address] [place] [address] Insurance Assigned Provider 03/23/19 Ra Burleson MD, PhD [address] [place] [address] [email or web address] 08/19/20 Alyssa James MD [address] [place] [address] [email or web address] Insurance Assigned Provider 02/24/24 documented as of this encounter Additional Source Comments The information contained in this document represents components of the legal health record. It is not the complete legal health record.[facility]
--- OUTSIDE RECORDS SUMMARY | 2025-06-30 14:26 | XMS_ITS | Encounter Summary ---
Author Organization [facility] Address [address] [place] [address] Phone Care Team Providers Care Film Processing Utility Worker Name Role Phone Alyssa James MD Primary Care Provider [phone] Encounter Details Date Type Department Care Team (Late st Contact Info) Description 10/02/2023 Documentation Only [facility] [place], [address] [place] [address] Raquel Summers [address] [place] [address] Social History Tobacco Use Types [...] on filedocumented in this encounter Care Teams Film Processing Utility Worker Relationship Specialty Start Date End Date Alyssa James MD [address] [place] [address], [address] [place] [address] PCP - General 09/24/19 documented as of this encounter
--- OUTSIDE RECORDS SUMMARY | 2025-06-30 14:26 | XMS_ITS | Clinical Summary ---
Author Organization [facility] ity Address [address] [place] [address] Care Team Providers Care Education General Manager Name Role Phone Unavailable Primary Care Provider [...]
[2025-06-30] MEDS: iohexoL 350 MG/ML 100 ML INFUS..BTL 85 ML IV (15:20)
== END 2025-06-30 13:58 | disposition home or self-care (01) ==
LOC: HO.CT 13:57
PROVIDERS: PCP Internal Medicine; Visit Provider Urology
DX: N28.89 Other specified disorders of kidney and ureter (principal)
CPT/HCPCS: 74170; Q9967

== ENCOUNTER 2025-09-22 13:08 | Outpatient (AMB) | payer MEDICARE, SELFPAY ==
--- NOTE | 2025-09-22 13:23 | A.OFFVIS_ITS ---
Intake Visit Reasons: 7m/CT/labs Intake Note: Patient presents today for 7m/CT/Labs * 06/11 BUN:13/Creatinine:0.63 * 07/[address] Urology Medication:NONE Antibiotic Allergy:NONE Blood Thinner:NONE Software Sales Executive Required: No Allergies amoxicillin Allergy (Mild, Verified 09/22/25 13:24) Unknown ampicillin Allergy (Mild, Verified 09/22/25 13:24) Unknown Penicillins Allergy (Mild, Verified 09/22/25 13:24) Unknown HPI Comments Details: 09/22/25--Josefina is a 70-year-old female. Follow-up left nephrolithiasis. Previous renal ultrasound question for 7 mm echogenic cortical lesion she is status post CT abdomen with and without IV contrast. History of Present Illness The patient is a 70-year-old female presenting with a follow-up for left nephrolithiasis. A previous renal ultrasound indicated a 7 mm echogenic cortical lesion, leading to a CT abdomen with and without IV contrast. The CT performed on 06/30/25 confirmed a small benign fatty lesion in the left kidney and identified small bilateral renal cysts. Additionally, a 6-mm pancreatic cyst was noted, I discussed a referral to gastroenterology for further evaluation. The patient prefers to follow up with the [facility] system. Results - CT abdomen with and without IV contrast: Small benign fatty lesion in the left kidney, small bilateral renal cysts, left nephrolithiasis and a 6-mm pancreatic cyst. Plan 1. Left Nephrolithiasis - Monitor with renal ultrasound in one year. 2. 6-Mm Pancreatic Cyst 02/19/25--Telehealth History of Present Illness The patient is a 69-year-old female presenting with follow-up concerns regarding previously identified renal issues. An ultrasound conducted on January 13, 2025, revealed a 4 mm renal stone in the left kidney and a 7 mm echogenic cortical lesion suggestive of angiomyolipoma. These findings currently appear asymptomatic, with no reported changes in the patient's urinary habits or the presence of associated pain. The history reveals no acute complications since the initial discovery, indicating stability of the conditions at this time. Discussion Notes I discussed with the patient the ultrasound findings indicating the presence of a left renal stone measuring 4 mm and a cortical lesion suspected to be an angiomyolipoma measuring 7 mm. I explained that while the stone is small and currently does not necessitate urgent intervention, periodic monitoring is advised. Regarding the lesion, I discussed the potential need for further imaging?specifically a CT scan with renal mass protocol, including IV contrast, to better characterize it. The follow-up imaging can occur in six months unless symptoms arise. I clarified that, currently, there are no concerning findings, but the additional imaging helps ensure comprehensive evaluation. I advised that the CT scan requires bloodwork to assess renal function due to the use of contrast. Urinary Symptoms Review - No acute urinary symptoms reported - No changes in frequency or urgency of urination mentioned - No instances of pain or discomfort documented - No reports of urinary incontinence Results - Ultrasound (01/13/25): 4 mm left renal calculus, 7 mm echogenic cortical lesion suggestive of angiomyolipoma (01/13/25--Nonobstructing caliceal stone upper pole measuring 4 x 3 x 2 mm. Echogenic renal cortical lesion midpole probable angiomyolipoma measuring 7 x 7 x 7 mm.) 07/11/2024--Josefina is a 68-year-old female who has a history of kidney stones and interstitial cystitis seen by [facility] Dr. Charbel Zavala in the past here for evaluation. She states she is currently asymptomatic. She has not had IC symptoms other than getting up frequently at nighttime. She of the IC diet. Josefina states she had her 1st episode of kidney stone attack about 35 years ago. She has past a couple stones in the past and had a procedure with Dr. Zavala at [facility] in 2018 for an obstructive stone. Since then she has been doing well. She is followed by nephrology group kidney care and transplant [facility] in [facility]. She states she had a 24 hour urine done about 3 or 4 months ago. She previously been treated with hydrochlorothiazide currently not using the medication. She states she had a CT scan done about 4 months ago at [facility]. I will request the report to be sent to my attention. Plan-will continue to monitor kidneys, discussed diet recommendations to decrease risk of kidney stone formation. FU in 6 months. PFSH Family History Father Bladder cancer Mother Heart attack Social History Alcohol intake: former Patient Tobacco Use Status: Former Tobacco user Review of Systems Const All systems reviewed & are unremarkable except as noted in HPI and below Reports no additional complaints Eyes Reports no additional complaints ENT Reports no additional complaints Card Reports no additional complaints Resp Reports no additional complaints GI Reports no additional complaints Reports as per HPI Musc Reports no additional complaints Skin/Breast Reports system reviewed and no additional complaints, except as documented Neuro Reports no additional complaints Psych Reports no additional complaints Endo Reports no additional complaints Hai/Lymph Reports no additional complaints Aller/Immun Reports no additional complaints Results Reviewed Results Reviewed: Date of Service: 06/30/25 CLINICAL HISTORY: N28.89 - Other specified disorders of kidney and ureter CT abdomen with and without contrast Comparison: None provided Findings: No consolidation or effusion. Small nonobstructing calculi are seen throughout the left kidney. There is a small benign fatty lesion in the midpole of the left kidney. There is a small right renal cyst and several small left renal cysts. . No solid lesions are identified. There is no hydronephrosis. A 6.6 mm fluid attenuation lesion is seen in the pancreatic head. The gallbladder and the rest of the solid organs are unremarkable. No bowel obstruction, pneumoperitoneum, or pneumatosis. No acute fracture. The visualized GI tract is unremarkable. IMPRESSION: 1. Left-sided nephrolithiasis without obstructive uropathy. 2. Small bilateral renal cysts. 3. Small benign fatty lesion left kidney. 4. 6.6 mm fluid attenuation lesion in the pancreatic head likely a benign cystic lesion. Consider correlating with MRI. Date of Service: 01/13/25 CLINICAL HISTORY: N20.0 - Calculus of kidney US renal with Color Doppler Comparison: None Findings: Right kidney normal size and echotexture, 10.3 cm length. No hydronephrosis calculus or mass. Normal color flow. Left kidney normal size and echotexture, 9.8 cm length. No hydronephrosis. Normal color flow. Nonobstructing caliceal stone upper pole measuring 4 x 3 x 2 mm. Echogenic renal cortical lesion midpole probable angiomyolipoma measuring 7 x 7 x 7 mm. Impression: 1. Kidneys normal size and position with normal cortical width. Nephrolithiasis on the left without evidence of obstructive uropathy. Probable angiomyolipoma midpole left kidney CT or MRI would be confirmatory Assessment & Plan Assessment & Plan (1) Kidney stone on left side: Code(s): N20.0 - Calculus of kidney Category: Medical (2) Bilateral renal cysts: Code(s): N28.1 - Cyst of kidney, acquired Category: Medical (3) Benign lipomatous neoplasm of kidney: Code(s): D17.71 - Benign lipomatous neoplasm of kidney Category: Medical (4) Pancreatic cyst: Code(s): K86.2 - Cyst of pancreas Category: Medical Plan Plan 1. Left Nephrolithiasis - Monitor with renal ultrasound in one year. 2. 6-Mm Pancreatic Cyst Patient Instructions: The patient had an opportunity to ask questions regarding treatment plan. The patient expressed understanding and agreement with the above treatment plan. The patient is aware they should contact our office by phone for worsening of their current condition or the appearance of new symptoms. Compliance is encouraged with any medications and followup testing that is ordered. It is a privilege to be allowed the opportunity to participate in the urologic care of your patient. If you have any questions or concerns regarding treatment for the above conditions please do not hesitate to contact me. The office telephone contact is [phone]. This note is constructed in part using voice recognition software. While every effort has been made to ensure accuracy nutrition services worker errors may have been included. Yours sincerely, Deanna Rosenberg MD Scribe Plan - Not visible on output: Patient was informed and verbally consented to the use of an ambient scribe for clinic note documentation during this visit. Coding Level of Care Code Est Pt Level 4 (54182) Diagnoses Kidney stone on left side N20.0 Bilateral renal cysts N28.1 Benign lipomatous neoplasm of kidney D17.71 Pancreatic cyst K86.2
== END 2025-09-22 14:01 | disposition home or self-care (01) ==
LOC: HO.HUSH 13:10
PROVIDERS: PCP Internal Medicine; Visit Provider Urology
DX: N20.0 Calculus of kidney (principal); N28.1 Cyst of kidney, acquired; D17.71 Benign lipomatous neoplasm of kidney; K86.2 Cyst of pancreas
CPT/HCPCS: 99214

== ENCOUNTER → 2025-09-22 13:08 | Outpatient (BNVA) | payer MEDICARE, SELFPAY | PROVIDERS: PCP Internal Medicine; Visit Provider Urology | DX: D17.71 Benign lipomatous neoplasm of kidney (principal); N28.1 Cyst of kidney, acquired; N20.0 Calculus of kidney; K86.2 Cyst of pancreas; Z87.891 Personal history of nicotine dependence | CPT/HCPCS: 81003; 99212 ==